=== PATIENT | female | born 1955 | race Caucasian/White ===

== ENCOUNTER → 2021-01-25 | Outpatient (CLI) | payer OTHER | LOC: LAB 08:35 | PROVIDERS: ATTEND Student in an Organized Health Care Education/Training Program | DX: Z20.822 Contact with and (suspected) exposure to COVID-19 (principal) ==

== ENCOUNTER → 2021-01-28 | Outpatient (CLI) | payer OTHER ==
[~2021-01-28] VITALS: Ht 162.6 cm; Wt 72.6 kg
--- NOTE | 2021-01-30 17:07 | PATH ---
[facility] [address] [place] [address] PATHOLOGY RPT PROCEDURE Name: FRANCISCO YORK Room #: REG ARMEN Simons#: [id number] Admission: 01/28/21 Date of : 51 Discharge: Report #: [id number] Path Case #: [id number] [facility] Accession Number: [id number] . 01 Material submitted: . PART A: hepatic flexure - HEPATIC FLEXURE POLYP SNARE PART B: sigmoid colon - SIGMOID COLON POLYP SNARE . 01 Clinical history: . DTS/COLONOSCOPY/NEOPLASM OF LIVER AND BILIARY PASSAGES . 02 Diagnosis: A. Polyp, hepatic flexure polyp, endoscopic biopsy: - Tubular adenoma. - Negative for high grade dysplasia. . B. Polyp, sigmoid colon polyp, endoscopic biopsy: - Tubular adenoma. - Negative for high grade dysplasia. (IUV/db; 01/30/2021) LBQ 01/30/2021 1228 Local . 02 Electronically signed: . Janey Tenorio MD, Pathologist NPI- [id number] . 01 Gross description: . A. Received in formalin labeled "Francisco York, hepatic flexure polyp" are multiple pineda-brown soft tissue fragments measuring in aggregate 0.4 x 0.4 x 0.1 cm. The specimen is submitted entirely in A1. . B. Received in formalin labeled "Francisco York, sigmoid colon polyp" is a pineda-brown soft tissue fragment measuring 0.2 x 0.2 x 0.1 cm. The specimen is submitted entirely in B1. (TRICE; 01/29/2021) TRICE/TRICE 01/30/2021 1227 Local . 02 Pathologist provided ICD-10: D12.3, D12.5 . 02 CPT . 460113, [id number] Specimen Comment: A courtesy copy of this report has been sent to [phone] Specimen Comment: [phone] Specimen Comment: Report sent to / DR VIEIRA Performed at: 01 [place] [address] PATHOLOGY RPT PROCEDURE Name: ROFRANCISCO WEST Room #: REG Ken Simons#: [id number] Admission: 01/28/21 Date of : 51 Discharge: Report #: [id number] Path Case #: [id number] [address] [facility] [address], [place], [place] [id number] MD Prakash Back MD Phone: [phone] Performed at: [address] [id number] MD Janey Tenorio MD Phone: [phone]
== END | disposition home or self-care (01) ==
LOC: GI
PROVIDERS: ATTEND Internal Medicine Gastroenterology
DX: Z12.11 Encounter for screening for malignant neoplasm of colon (principal); D12.3 Benign neoplasm of transverse colon; D12.5 Benign neoplasm of sigmoid colon; K57.30 Diverticulosis of large intestine without perforation or abscess without bleeding; K64.8 Other hemorrhoids; Z98.890 Other specified postprocedural states; Z79.899 Other long term (current) drug therapy; Z87.891 Personal history of nicotine dependence
CPT/HCPCS: 62110; 62900